=== PATIENT | female | born 1990 | race Caucasian/White ===

== ENCOUNTER 2017-12-19 21:11 | Emergency (ER) | payer OTHER ==
[2017-12-19] MEDS ORDERED: LIDOCAINE 2% 20 ML VIAL. IJ (22:15)
[2017-12-19] MEDS: HYDROcodone/APAP 5/325MG 1 TAB TABLET PO (22:49)
[2017-12-19] MEDS: DIPHTH,PERTUSS(ACELL),TET TOX 0.5 ML DISP.SYRIN. VAX IM (22:51)
[2017-12-19] MEDS ORDERED: ALPRAZolam 0.25 MG TABLET (23:18)
[2017-12-19] MEDS: ALPRAZolam 0.5 MG TABLET PO (23:22)
== END 2017-12-20 01:31 | disposition home or self-care (01) ==
LOC: ER 12-20 01:31
DX: S61.011A Laceration without foreign body of right thumb without damage to nail, initial encounter (principal); F12.10 Cannabis abuse, uncomplicated; F10.10 Alcohol abuse, uncomplicated; Z88.0 Allergy status to penicillin; Z91.012 Allergy to eggs; X58.XXXA Exposure to other specified factors, initial encounter; Y93.89 Activity, other specified; Y99.8 Other external cause status; Y92.89 Other specified places as the place of occurrence of the external cause
CPT/HCPCS: 12001; 73130; 90471; 90715; 99284-25

== ENCOUNTER 2018-01-01 08:40 | Emergency (ER) | payer OTHER | END 2018-01-01 09:27 | disposition home or self-care (01) | LOC: ER 08:40 | DX: S61.011D Laceration without foreign body of right thumb without damage to nail, subsequent encounter (principal); F12.10 Cannabis abuse, uncomplicated; F17.200 Nicotine dependence, unspecified, uncomplicated; F10.10 Alcohol abuse, uncomplicated; Z88.0 Allergy status to penicillin; Z91.012 Allergy to eggs; X58.XXXD Exposure to other specified factors, subsequent encounter | CPT/HCPCS: 99281 ==

== ENCOUNTER 2019-07-11 10:57 | Emergency (ER) | payer SELFPAY ==
[~2019-07-11] VITALS: Ht 162.6 cm; Wt 79.8 kg
[~2019-07-11 10:57] MED LIST: HYDR-3164 PO
[2019-07-11] MEDS ORDERED: IPRATRPIUM/ALBUTEROL 0.5/2.5MG 3 ML NEBU. NEB STA (11:33)
--- NOTE | 2019-07-11 11:43 | PHYS DOC ---
Past Medical History Past Medical History: No Pertinent History Additional Past Medical Histor: tendonitis in neck Past Surgical History: Alcohol Use: Heavy Drug Use: Marijuana Adult General Chief Complaint Chief Complaint: HEAD INJURY/TRAUMA HPI HPI Patient is a 28 year old female who presents with an injury. The patient states that she was in a parking lot at the [employer] on her way to work and as she leaned into the car she hit her head against the car door and was unconscious for an unknown period of time and was found by a coworker. This happened around 10 AM. The patient's been having dizziness, and describes milky vision in her right eye. She states that she has a history of benign brain tumor. She reports her pain as 4 out of 10 in severity and sharp. Review of Systems Review of Systems Constitutional: Reports dizziness. Denies fever or chills [] Eyes: Reports change in visual acuity, Denies redness, or eye pain [] HENT: Denies nasal congestion or sore throat [] Respiratory: Denies cough or shortness of breath [] Cardiovascular: No additional information not addressed in HPI [] GI: Reports nausea, Denies abdominal pain, vomiting, bloody stools or diarrhea [] : Denies dysuria or hematuria [] Musculoskeletal: Denies back pain or joint pain [] Integument: Denies rash or skin lesions [] Neurologic: Reports headache, Denies focal weakness or sensory changes [] Endocrine: Denies polyuria or polydipsia [] Complete systems were reviewed and found to be within normal limits, except as documented in this note. Current Medications Current Medications Current Medications Medications (Trade) Dose Ordered Sig/Eugenie Start Time Stop Time Status Last Admin Dose Admin Albuterol/ Ipratropium (Duoneb) 3 ml 1X STAT 07/11/19 11:33 07/11/19 11:38 DC 07/11/19 11:44 3 ML Allergies Allergies Allergies Coded Allergies Type Severity Reaction Last Updated Verified Penicillins Allergy Intermediate 11/25/13 Yes egg Allergy Intermediate 11/25/13 Yes aspirin Allergy Unknown 07/11/19 Yes Uncoded Allergies Type Severity Reaction Last Updated Verified 27 FRUITS Allergy Unknown 07/11/19 Physical Exam Physical Exam Constitutional: Well developed, well nourished, no acute distress, non-toxic appearance. [] HENT: Normocephalic, atraumatic, bilateral external ears normal, oropharynx moist, no oral exudates, nose normal. [] Eyes: R pupil is 3+ and reactive, Left is 2+ and reactive, conjunctiva normal, no discharge. [] Neck: Normal range of motion, no tenderness, supple, no stridor. [] Cardiovascular:Heart rate regular rhythm, no murmur [] Lungs & Thorax: Bilateral breath sounds have diffuse rhonchi. Abdomen: Bowel sounds normal, soft, no tenderness, no masses, no pulsatile masses. [] Skin: Warm, dry, no erythema, no rash. [] Back: No tenderness, no CVA tenderness. [] Extremities: No tenderness, no cyanosis, no clubbing, ROM intact, no edema. [] Neurologic: Alert and oriented X 3, normal motor function, normal sensory function, no focal deficits noted. [] Psychologic: Affect normal, judgement normal, mood normal. [] Current Patient Data Vital Signs Vital Signs Date Time Temp Pulse Resp B/P (MAP) Pulse Ox O2 Delivery O2 Flow Rate FiO2 07/11/19 11:45 96 Room Air 07/11/19 11:25 97.9 85 19 111/69 (83) 97.9 Lab Values Laboratory Tests Test 07/11/19 11:43 POC Urine HCG, Qualitative Hcg negative (Negative) EKG EKG [] Radiology/Procedures Radiology/Procedures [facility] [address] [place] [address] IMAGING REPORT Signed PATIENT: DALE CHAN ACCOUNT: [id number] : 1990 LOCATION: ER AGE: 28 SEX: F EXAM STATUS: REG ER ORD. PHYSICIAN: JAKUB STATON APRN REASON: fall, blurry vision, +loc PROCEDURE: CT HEAD WO CONTRAST CT HEAD WITHOUT CONTRAST 07/11/2019 11:33 AM Indication: Fall, blurry vision. Head trauma Comparison: None Procedure: Multidetector CT imaging of the head was performed without the administration of contrast. Findings: There is no evidence of acute intracranial hemorrhage. There is no evidence of acute territorial infarction. Please note that CT is limited for evaluation of acute ischemia. No mass effect or midline shift is identified . The ventricles and basilar cisterns have an appropriate appearance. No abnormal extra-axial fluid collections are seen. No acute osseous changes are identified. Impression: No evidence of acute intracranial abnormality CT DOSING PQRS STATEMENT: One or more of the following individualized dose reduction techniques were utilized for this examination: 1. Automated exposure control 2. Adjustment of the mA and/or kV according to patient size 3. Use of iterative reconstruction technique Electronically signed by: Elijah Sharpe MD (07/11/2019 12:36 PM) [facility] DICTATED and SIGNED BY: ELIJAH SHARPE MD DATE: 07/11/19 1236 [][facility] [address] [place] [address] IMAGING REPORT Signed PATIENT: DALE CHAN ACCOUNT: [id number] : 1990 LOCATION: ER AGE: 28 SEX: F EXAM STATUS: REG ER ORD. PHYSICIAN: JAKUB STATON APRN REASON: cough x2 weeks. hx of asthma, bronchitis PROCEDURE: CHEST PA & LATERAL AP and Lateral Views of the Chest 07/11/2019 11:33 AM Indication: Shortness of breath. History of asthma Comparison: None Findings: There is no focal consolidation or infiltrate identified. The cardiomediastinal silhouette is within normal limits. There is no evidence of pneumothorax or pleural effusion. No acute osseous abnormalities are identified. Impression: No evidence of acute cardiopulmonary process. Electronically signed by: Elijah Sharpe MD (07/11/2019 12:17 PM) [facility] DICTATED and SIGNED BY: ELIJAH SHARPE MD DATE: 07/11/19 1217 Course & Med Decision Making Course & Med Decision Making Pertinent Labs and Imaging studies reviewed. (See chart for details) Will get urine preg, head Ct, breathing treatment, and chest x-ray. Workup is negative. Appears to have concussion and bronchitis. Dragon Disclaimer Dragon Disclaimer This electronic medical record was generated, in whole or in part, using a voice recognition dictation system. Departure Departure Impression: Primary Impression: Concussion Additional Impression: Bronchitis Disposition: 01 HOME, SELF-CARE Condition: STABLE Referrals: NO PCP (PCP) Patient Instructions: Concussion and Brain Injury Additional Instructions: Thank you for visiting [facility]. We appreciate you trusting us with your care. If any additional problems come up don't hesitate to return to visit us. Please follow up with your primary care provider so they can plan additional care if needed and know about the problem that you had. If symptoms worsen come back to the Emergency Department. Any concerning symptoms that start such as chest pain, shortness of air, weakness or numbness on one side of the body, running high fevers or any other concerning symptoms return to the ER. PATIENT TAKE-HOME INSTRUCTIONS ([facility]) INFORMATION FOR ADULTS You have been examined for a head injury and possible concussion. Take time off from work or school for days or until you and your health inpatient care manager rn think you are able to return to your usual routine. Further instructions from your health inpatient care manager rn: When should I return to the hospital emergency department? Sometimes serious problems develop after a head injury. Return immediately to the emergency department if you experience any of the following symptoms: ? Repeated vomiting ? Headache that gets worse and does not go away ? Loss of consciousness or unable to stay awake during times you would normally be awake ? Getting more confused, restless, or agitated ? Convulsions or seizures ? Difficulty walking or difficulty with balance ? Weakness or numbness ? Difficulty with your vision Most of all, if you have any symptom that concerns you, your family members, or friends, dont delay, see a doctor right away. Q&A. Some questions and answers about brain injuries Q. What is a concussion? A. A concussion is a type of traumatic brain injury (TBI). It is caused by a bump, blow, or jolt to the head or body that causes the head and brain to move quickly back and forth. Some of the ways you can get a concussion are when you hit your head during a fall, car crash, or sports injury. Health critical care registered nurse sometime refer to concussions as mild? brain injuries because they are usually not life-threatening. Even so, their effects can be serious. Q. What should I expect once I'm home from the hospital? A. Most people with a concussion recover quickly and fully. During recovery, it is important to know that many people have a range of symptoms. Some symptoms may appear right away, while others may not be noticed for hours or even days after the injury. You may not realize you have problems until you try to do your usual ac tivities again. Below is a list of some of the symptoms you may have: Thinking/ Remembering Difficulty thinking clearly Feeling slowed down Difficulty concentrating Difficulty remembering new information Physical Headache Nausea or vomiting (early on) Sensitivity to noise or light Feeling tired, having no energy Fuzzy or blurry vision Dizziness Balance problems Emotional/ Mood Irritability Sadness More emotional Nervousness or anxiety Sleep Sleeping more than usual Sleeping less than usual Trouble falling asleep These postconcussive? symptoms can be part of the normal healing process and are generally not signs of permanent damage or serious health problems. Most symptoms go away over time without any treatment. It is easy to become upset or afraid if you dont know what to expect or if you are having problems. Keep talking with your doctor and others about how you are feeling. Tell your health inpatient care manager rn if you do not think you are getting better. Q. What can I do to feel better? A. Getting plenty of rest and sleep helps the brain to heal. Do not try to do too much too fast. As you start to feel better, you can slowly and gradually return to your usual routine. Here are some other tips to help you get better: Avoid activities that are physically demanding (e.g., sports, heavy housecleaning, exercising) or require a lot of thinking or concentration (e.g., working on the computer, playing video games). Ignoring your symptoms and toughing it out? often makes symptoms worse. Ask your health inpatient care manager rn when you can safely drive a car, ride a bike, or operate heavy equipment. Do not drink alcohol. Q. What if I don't feel better after a week? A. If you do not feel back to normal within one week, see a health inpatient care manager rn who has experience treating brain injuries. Q. Should I tell my work about my injury? A. If your injury was work-related, make sure you report it right away to your employer and your workers compensation office. Q. When can I return to sports and recreational activities? A. Do not return to sports and recreational activities before talking to your health inpatient care manager rn. A repeat concussion that occurs before the brain has fully healed can be very dangerous and may slow your recovery or increase the chance for long-term problems. Q. How can I avoid a concussion in the future? A. There are many ways to minimize the risk of a concussion and other injuries: Wear a seat belt and use a safety seat for children. Wear a helmet that fits properly when biking, riding a motorcycle, skating, skiing, horseback riding, or playing contact sports. Prevent falls in the home by: Using grab bars in the bathroom and handrails by stairs. Placing non-slip mats in the bathtub and on floors. Removing trip hazards in the house. Improving lighting. Installing safety melendez by stairs and safety guards by windows to protect young children in your home. For more information about concussion, please visit www.cdc.gov/Concussion. This fact sheet is part of the Centers for Disease Control and Preventions (CDC) Heads Up? series of publications and is based on the 2008 Clinical Policy: Neuroimaging and Decisionmaking in Adult Mild Traumatic Brain Injury in the Acute Setting, jointly produced by CDC and [facility] Scripts Ondansetron (ONDANSETRON ODT) 4 Mg Tab.rapdis 1 TAB PO PRN Q6-8HRS PRN for NAUSEA, #16 TAB Prov: JAKUB STATON APRN 07/11/19 Problem Qualifiers Primary Impression: Concussion Encounter type: initial encounter Loss of consciousness presence/duration: with LOC of unspecified duration Qualified Codes: S06.0X9A - Concussion with loss of consciousness of unspecified duration, initial encounter JAKUB STATON APRN Jul 11, 2019 11:43
--- NOTE | 2019-07-11 12:20 | RAD ---
AP and Lateral Views of the Chest 07/11/2019 11:33 AM Indication: Shortness of breath. History of asthma Comparison: None Findings: There is no focal consolidation or infiltrate identified. The cardiomediastinal silhouette is within normal limits. There is no evidence of pneumothorax or pleural effusion. No acute osseous abnormalities are identified. Impression: No evidence of acute cardiopulmonary process. Electronically signed by: Elijah Suarez MD (07/11/2019 12:17 PM) [facility]
--- NOTE | 2019-07-11 12:40 | RAD ---
CT HEAD WITHOUT CONTRAST 07/11/2019 11:33 AM Indication: Fall, blurry vision. Head trauma Comparison: None Procedure: Multidetector CT imaging of the head was performed without the administration of contrast. Findings: There is no evidence of acute intracranial hemorrhage. There is no evidence of acute territorial infarction. Please note that CT is limited for evaluation of acute ischemia. No mass effect or midline shift is identified . The ventricles and basilar cisterns have an appropriate appearance. No abnormal extra-axial fluid collections are seen. No acute osseous changes are identified. Impression: No evidence of acute intracranial abnormality CT DOSING PQRS STATEMENT: One or more of the following individualized dose reduction techniques were utilized for this examination: 1. Automated exposure control 2. Adjustment of the mA and/or kV according to patient size 3. Use of iterative reconstruction technique Electronically signed by: Elijah Suarez MD (07/11/2019 12:36 PM) [facility]
[2019-07-11] MEDS ORDERED: ONDA4TAB12 PO (13:17)
[2019-07-11 13:38] VITALS: BP 98/63
== END 2019-07-11 13:38 | disposition home or self-care (01) ==
LOC: ER 10:57
DX: S06.0X9A Concussion with loss of consciousness of unspecified duration, initial encounter (principal); J40 Bronchitis, not specified as acute or chronic; R42 Dizziness and giddiness; R51 Headache; F10.20 Alcohol dependence, uncomplicated; Y90.9 Presence of alcohol in blood, level not specified; Z88.0 Allergy status to penicillin; Z91.012 Allergy to eggs; Z88.6 Allergy status to analgesic agent; Z91.018 Allergy to other foods; W22.8XXA Striking against or struck by other objects, initial encounter; Y93.89 Activity, other specified; Y92.481 Parking lot as the place of occurrence of the external cause; Y99.8 Other external cause status
CPT/HCPCS: 70450; 71046; 81025; 94640; 99284; J7620

== ENCOUNTER 2021-06-11 13:10 | Emergency (ER) | payer SELFPAY ==
[~2021-06-11 13:10] MED LIST changes: +ONDA4TAB12 PO
== END 2021-06-11 15:40 | disposition left against medical advice (07) ==
LOC: ER 13:10
DX: N23 Unspecified renal colic (principal); Z53.21 Procedure and treatment not carried out due to patient leaving prior to being seen by health care provider